=== PATIENT | female | born 1965 | race Caucasian/White ===

== ENCOUNTER → 2017-05-20 | Outpatient (CLI) | payer BC ==
--- NOTE | 2017-05-20 13:52 | MM ---
Reason for exam: follow-up at short interval from prior study. Last mammogram was performed 6 months ago. History: Patient has history of other cancer at age 42. Family history of premenopausal breast cancer in paternal grandmother, premenopausal breast cancer in paternal cousin, and breast cancer in paternal cousin. Took hormonal contraceptives for 3 years beginning at age 16. Physical Findings: Nurse did not find any significant physical abnormalities on exam. MG 3D Diag Mammo W/Cad RT CC and MLO view(s) were taken of the right breast. Prior study comparison: November 10, 2016, bilateral MG diagnostic mammo w CAD [facility]. June 23, 2015, bilateral MG screening mammo w CAD. The breast tissue is heterogeneously dense. This may lower the sensitivity of mammography. There is no discrete abnormality, including area of concern. These results were verbally communicated with the patient and result sheet given to the patient on 05/20/17. ASSESSMENT: Benign, BI-RAD 2 RECOMMENDATION: Routine screening mammogram of both breasts in 5 months. Back on schedule October 2017.
== END | disposition home or self-care (01) ==
LOC: RADMAMWWP 12:54
PROVIDERS: ATTEND Internal Medicine
DX: R92.8 Other abnormal and inconclusive findings on diagnostic imaging of breast (principal)
CPT/HCPCS: G0206; G0279

== ENCOUNTER → 2017-12-09 | Outpatient (CLI) | payer BC ==
--- NOTE | 2017-12-13 10:12 | MM ---
Reason for exam: screening (asymptomatic). Last mammogram was performed 7 months ago. History: Patient has history of other cancer at age 42. Family history of premenopausal breast cancer in paternal grandmother, premenopausal breast cancer in paternal cousin, and breast cancer in paternal cousin. Took hormonal contraceptives for 3 years beginning at age 16. Physical Findings: A clinical breast exam by your physician is recommended on an annual basis and results should be correlated with mammographic findings. MG 3D Screening Mammo W/Cad Bilateral CC and MLO view(s) were taken. Prior study comparison: May 20, 2017, right breast MG 3d diag mammo w/cad RT. November 10, 2016, bilateral MG diagnostic mammo w CAD [facility]. The breast tissue is heterogeneously dense. This may lower the sensitivity of mammography. No significant changes when compared with prior studies. ASSESSMENT: Benign, BI-RAD 2 RECOMMENDATION: Routine screening mammogram of both breasts in 1 year.
== END | disposition home or self-care (01) ==
LOC: RADMAMWWP 13:06
PROVIDERS: ATTEND Internal Medicine
DX: Z12.31 Encounter for screening mammogram for malignant neoplasm of breast (principal)
CPT/HCPCS: 77063; 77067

== ENCOUNTER → 2019-11-06 | Outpatient (CLI) | payer BC ==
--- NOTE | 2019-11-09 10:35 | MM ---
Reason for exam: screening (asymptomatic). Last mammogram was performed 1 year and 11 months ago. History: Patient has history of other cancer at age 42. Family history of premenopausal breast cancer in paternal grandmother, premenopausal breast cancer in paternal cousin, and breast cancer in paternal cousin. Took hormonal contraceptives for 3 years beginning at age 16. Physical Findings: A clinical breast exam by your physician is recommended on an annual basis and results should be correlated with mammographic findings. MG 3D Screening Mammo W/Cad Bilateral CC and MLO view(s) were taken. Prior study comparison: December 09, 2017, bilateral MG 3d screening mammo w/cad. May 20, 2017, right breast MG 3d diag mammo w/cad RT. The breast tissue is heterogeneously dense. This may lower the sensitivity of mammography. Scattered benign oil cyst calcifications. No significant changes when compared with prior studies. ASSESSMENT: Benign, BI-RAD 2 RECOMMENDATION: Routine screening mammogram of both breasts in 1 year.
== END | disposition home or self-care (01) ==
LOC: RADMAMWWP 10:46
PROVIDERS: ATTEND Family Medicine
DX: Z12.31 Encounter for screening mammogram for malignant neoplasm of breast (principal); Z80.3 Family history of malignant neoplasm of breast
CPT/HCPCS: 77063; 77067

== ENCOUNTER → 2020-12-15 | Outpatient (CLI) | payer BC ==
--- NOTE | 2020-12-16 13:55 | MM ---
Reason for exam: screening (asymptomatic). Last mammogram was performed 1 year and 1 month ago. History: Patient has history of other cancer at age 42. Family history of premenopausal breast cancer in paternal grandmother, premenopausal breast cancer in paternal cousin, and breast cancer in paternal cousin. Took hormonal contraceptives for 3 years beginning at age 16. Physical Findings: A clinical breast exam by your physician is recommended on an annual basis and results should be correlated with mammographic findings. MG 3D Screening Mammo W/Cad Bilateral CC and MLO view(s) were taken. Prior study comparison: November 06, 2019, bilateral MG 3d screening mammo w/cad. December 09, 2017, bilateral MG 3d screening mammo w/cad. The breast tissue is heterogeneously dense. This may lower the sensitivity of mammography. No significant changes when compared with prior studies. ASSESSMENT: Benign, BI-RAD 2 RECOMMENDATION: Routine screening mammogram of both breasts in 1 year.
== END | disposition home or self-care (01) ==
LOC: RADMAMWWP 13:02
PROVIDERS: ATTEND Family Medicine
DX: Z12.31 Encounter for screening mammogram for malignant neoplasm of breast (principal)
CPT/HCPCS: 77063; 77067

== ENCOUNTER → 2022-01-06 | Outpatient (CLI) | payer BC | END | disposition home or self-care (01) | LOC: LABPAT 14:48 | PROVIDERS: ATTEND Orthopaedic Surgery | DX: Z01.812 Encounter for preprocedural laboratory examination (principal); Z22.322 Carrier or suspected carrier of Methicillin resistant Staphylococcus aureus; M17.11 Unilateral primary osteoarthritis, right knee | CPT/HCPCS: 87070 ==

== ENCOUNTER → 2022-11-20 | Outpatient (CLI) | payer BC | END | disposition home or self-care (01) | LOC: LABPAT 11:40 | PROVIDERS: ATTEND Orthopaedic Surgery | DX: Z53.9 Procedure and treatment not carried out, unspecified reason (principal) ==

== ENCOUNTER 2023-07-11 08:09 | Day surgery (SDC) | payer BC ==
[2023-07-11] MEDS ORDERED: LACTATED RINGERS 1,000 ML IV SCH (08:24)
[2023-07-11] MEDS ORDERED: PROPOFOL 10 MG/ML 20 ML VIAL IV ONE (09:45)
--- NOTE | 2023-07-11 09:47 | P.HPOR ---
History of Present Illness H&P Date: 07/11/23 Chief Complaint: Right knee adhesions 49-year-old patient seen with persistent right knee adhesions after previously having undergone right total knee arthroplasty. We discussed treatment options. She elected to proceed with manipulation under anesthesia right knee. Past Medical History Past Medical History: Cancer, Osteoarthritis (OA) Additional Past Medical History / Comment(s): pt takes metroprolol for higher heart rate has taken for 7 yrs, hx skin cancer. arthritis to knees. History of Any Multi-Drug Resistant Organisms: None Reported Past Surgical History: Joint Replacement Additional Past Surgical History / Comment(s): rt arthroscopic knee. rt ankle surgery . rt knee ligament, skin cancer removal, lasik rt knee replacement Past Anesthesia/Blood Transfusion Reactions: No Reported Reaction Smoking Status: Never smoker - Past Family History Father Additional Family Medical History / Comment(s): liver issues , skin cancer Mother Family Medical History: AFIB Brother(s) Family Medical History: Diabetes Mellitus, Hypertension Medications and Allergies Home Medications Medication Instructions Recorded Confirmed Type Acetaminophen Tab [Tylenol] 325 mg PO DIRECTED PRN 11/24/22 07/11/23 History Ascorbic Acid [Vitamin C] 500 mg PO DAILY 11/24/22 07/11/23 History Metoprolol Tartrate 25 mg PO DAILY 11/24/22 07/11/23 History Zinc Gluconate [Zinc] 50 mg PO DAILY 11/24/22 07/11/23 History Multivitamins, Thera [Multivitamin 1 tab PO DAILY 12/28/22 07/11/23 History (formulary)] Allergies Allergy/AdvReac Type Severity Reaction Status Date / Time No Known Allergies Allergy Verified 07/11/23 08:24 Physical Examination Osteopathic Statement: *. No significant issues noted on an osteopathic structural exam other than those noted in the History and Physical/Consult. Right knee anterior incision is well-healed. Range of motion is -2-95. Ligaments stable. Hip rotation without pain. Distal neurovascular exam is intact. Results - Diagnostic results Knee x-ray: image reviewed (Stable right total knee arthroplasty) Assessment and Plan Assessment: Right knee adhesions History right total knee arthroplasty Plan: Manipulation under anesthesia right knee Time with Patient: Less than 30
--- NOTE | 2023-07-11 09:54 | P.OP ---
Date of Procedure: 07/11/23 Preoperative Diagnosis: Right knee adhesions Postoperative Diagnosis: Right knee adhesions Procedure(s) Performed: Manipulation under anesthesia right knee Anesthesia: MAC Surgeon: Etienne Smiley Estimated Blood Loss (ml): 0 Pathology: none sent Condition: stable Disposition: PACU Indications for Procedure: 49-year-old patient seen with persistent right knee adhesions after previously having undergone total knee arthroplasty. After having treatment options discussed, she elected to proceed with mini position under anesthesia right knee. Operative Findings: See description of procedure Description of Procedure: Patient was taken to monitored anesthesia area. Patient received IV sedation by the department of anesthesia. Once adequate anesthesia was noted I performed a manipulation of the right knee achieving full extension and 145 of flexion with audible tearing of the adhesions. The patient was then awakened having tolerated procedure well.
[2023-07-11 10:07] VITALS: TEMP 97
[2023-07-11] MEDS ORDERED: HYDROmorphone 0.5 MG/0.5 ML SYRINGE IVP ONE ×2 (10:11→10:26)
[2023-07-11 10:42] VITALS: RESP 16
[2023-07-11 11:21] VITALS: BP 134/68; PULSE 65
--- NOTE | 2023-07-13 15:28 | HP ---
HISTORY AND PHYSICAL Surgery is scheduled for 07/11/2023. HISTORY OF PRESENT ILLNESS: Nina Baugh is a 57-year-old patient seen with right knee adhesions after previous total knee arthroplasty. Options for treatment were discussed. She elected to proceed with manipulation under anesthesia, right knee. Consents obtained. PAST MEDICAL HISTORY: Hypertension. SURGICAL HISTORY: Right total knee arthroplasty. DAILY MEDICATIONS: Metoprolol. ALLERGIES: None. SOCIAL HISTORY: She denies tobacco use. PHYSICAL EVALUATION OF RIGHT KNEE: Shows a well healed anterior incision. Range of motion is negative 3/4 to 110 degrees. Ligaments are stable. Hip rotation without pain. Distal neurovascular exam intact. IMAGING: Radiographs of the right knee reveals a stable appearing total knee arthroplasty. IMPRESSION: 1. Right knee adhesions/stiffness. 2. History of right total knee arthroplasty. PLAN: Manipulation under anesthesia, right knee. MMODL / IJN: [id number] /
== END 2023-07-11 11:26 | disposition home or self-care (01) ==
LOC: OR 08:09
PROVIDERS: ATTEND Orthopaedic Surgery
DX: K66.0 Peritoneal adhesions (postprocedural) (postinfection) (principal); M19.90 Unspecified osteoarthritis, unspecified site; Z80.0 Family history of malignant neoplasm of digestive organs; Z96.651 Presence of right artificial knee joint; Z82.49 Family history of ischemic heart disease and other diseases of the circulatory system; Z83.3 Family history of diabetes mellitus; Z79.899 Other long term (current) drug therapy
CPT/HCPCS: 27570; J2704; J1170

== ENCOUNTER 2023-10-04 12:02 | Day surgery (SDC) | payer BC ==
[2023-09-29 09:35] VITALS: BMI 26.0
[~2023-10-04 12:02] MED LIST: ACETAMINOPHEN TAB 500 MG TAB PO PRN; DEXAMETHASONE SOD PHOSPHATE 4 MG/ML 1 ML VIAL IV ONE; HEPARIN SODIUM,PORCINE/PF 5,000 UNIT/0.5 ML SYRINGE SQ PRN; LACTATED RINGERS 1,000 ML IV SCH; ONDANSETRON 4 MG/2 ML VIAL IVP ONE; Pre Op ABX Message 1 EACH MISC MISCELLANE ONE
[2023-10-04] MEDS ORDERED: MIDAZOLAM 2 MG/2 ML VIAL IVP ONE (13:07)
--- NOTE | 2023-10-04 13:35 | P.GSHP ---
History of Present Illness H&P Date: 10/04/23 Chief Complaint: Right axillary lymphadenopathy 57-year-old female here today for excisional biopsy right axillary lymph node. Patient felt a lump there a few months ago. Increasing in size. Mild soreness. Please refer to recent history and physical. Past Medical History Past Medical History: Cancer, Osteoarthritis (OA) Additional Past Medical History / Comment(s): tachycardia, hx skin cancer History of Any Multi-Drug Resistant Organisms: None Reported Past Surgical History: Joint Replacement, Orthopedic Surgery Additional Past Surgical History / Comment(s): mult. rt knee surg., rt ankle surgery, skin cancer removal, lasik, rt knee replacement Past Anesthesia/Blood Transfusion Reactions: No Reported Reaction Past Psychological History: No Psychological Hx Reported Smoking Status: Never smoker Past Alcohol Use History: Occasional Past Drug Use History: None Reported - Past Family History Father Additional Family Medical History / Comment(s): liver issues , skin cancer Mother Family Medical History: AFIB Brother(s) Family Medical History: Diabetes Mellitus, Hypertension Medications and Allergies Home Medications Medication Instructions Recorded Confirmed Type Metoprolol Tartrate 25 mg PO DAILY 11/24/22 10/04/23 History Allergies Allergy/AdvReac Type Severity Reaction Status Date / Time No Known Allergies Allergy Verified 10/04/23 12:49 Surgical - Exam Physical exam: General: Well-developed, well-nourished HEENT: Normocephalic, sclerae nonicteric Abdomen: Nontender, nondistended Extremities: No edema, 2 x 1.5 cm mass lateral aspect of the axilla Neuro: Alert and oriented Assessment and Plan (1) Axillary mass Narrative/Plan: 57-year-old female with palpable mass right axilla. We'll proceed with excisional biopsy at this time. Risks of bleeding, infection, scarring, numbness, nerve injury, weakness, lymphedema, seroma, possible need for further surgeries reviewed. She understands and wishes to proceed. Current Visit: Yes Status: Acute Code(s): R22.30 - LOCALIZED SWELLING, MASS AND LUMP, UNSPECIFIED UPPER LIMB SNOMED Code(s): 983472047
[2023-10-04] MEDS ORDERED: fentaNYL (PF) 50 MCG/ML 2 ML AMP ONE (13:50)
[2023-10-04] MEDS ORDERED: PHENYLEPHRINE-0.9% NACL SYG 1,000 MCG/10 ML SYRINGE ONE (13:50)
[2023-10-04] MEDS ORDERED: LIDOCAINE 1% INJ 10MG/ML (20 ML MDV) ONE (13:50)
[2023-10-04] MEDS ORDERED: PROPOFOL 10 MG/ML 20 ML VIAL IV ONE (13:50)
[2023-10-04] MEDS ORDERED: MIDAZOLAM 2 MG/2 ML VIAL ONE (13:50)
[2023-10-04] MEDS ORDERED: SODIUM CHLORIDE 0.9% 50 ML with ceFAZolin 2,000 MG IV ONE ×2 (14:21)
[2023-10-04] MEDS ORDERED: SODIUM CHLORIDE 0.9% 100 ML BAG ONE (14:21)
[2023-10-04] MEDS ORDERED: ceFAZolin 1,000 MG VIAL ONE (14:21)
[2023-10-04] MEDS ORDERED: BUPIVACAINE (PF) 0.25% 30 ML VIAL SQ ONE ×2 (14:22)
[2023-10-04] MEDS ORDERED: LACTATED RINGERS 1,000 ML IV ONE (14:49)
[2023-10-04] MEDS ORDERED: ACETAMINOPHEN TAB 325 MG TAB PO PRN (15:12)
[2023-10-04] MEDS ORDERED: NALOXONE 0.4 MG/ML 1 ML VIAL IV PRN (15:12)
[2023-10-04] MEDS: HYDROmorphone 0.5 MG/0.5 ML SYRINGE IVP PRN ×2 (15:18→15:39)
--- NOTE | 2023-10-04 15:18 | P.OP ---
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 COMPLICATIONS: None OPERATIVE PROCEDURE: Patient placed on the operating table in the supine position. The patient was placed under general anesthesia. The right axilla was prepped and draped sterilely. A curvilinear incision was made in a skin fold of the right axilla. The subcutaneous tissues were divided using electrocautery. A small superficial vessel was divided using clips. The patient's palpable mass was dissected down to the level of the basilic vein. Just superior to the basilic vein there was a peripheral nerve likely representing either median or ulnar nerve. Just posterior to that was firm mass measuring approximately 1.5 cm. This was nonpulsatile. 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 Given the location and the concern regarding possible iatrogenic injury if further dissection occurred I decided to abort plans for biopsy or excision at this time. The subcutaneous tissues were closed using 3-0 Vicryl sutures. The skin was closed using a running 4-0 Monocryl subcuticular suture. Skin glue was then applied. DISPOSITION: Stable to recovery room. Discussed case with the patient's mother and also the patient herself and recovery. Patient will follow up in the office 1 week. We'll likely refer to neurosurgery at [facility] for further workup given the intraoperative findings.
[2023-10-04 15:41] VITALS: RESP 16; TEMP 97
[2023-10-04 16:36] VITALS: BP 148/91; PULSE 70
== END 2023-10-04 16:50 | disposition home or self-care (01) ==
LOC: OR 12:02
PROVIDERS: ATTEND Surgery
DX: Z53.8 Procedure and treatment not carried out for other reasons (principal); R59.1 Generalized enlarged lymph nodes; M19.90 Unspecified osteoarthritis, unspecified site; F10.90 Alcohol use, unspecified, uncomplicated; Z80.0 Family history of malignant neoplasm of digestive organs; Z82.49 Family history of ischemic heart disease and other diseases of the circulatory system; Z83.3 Family history of diabetes mellitus; Z98.890 Other specified postprocedural states; Z96.651 Presence of right artificial knee joint; Z79.899 Other long term (current) drug therapy
CPT/HCPCS: 38500; J2250; J1100; J2405; J0690; J2001; J3010; J2704; J1170; J1644; J2371; J0665

== ENCOUNTER → 2023-12-30 | Outpatient (CLI) | payer BC ==
--- NOTE | 2024-01-02 19:41 | MM ---
Reason for Exam: Screening (asymptomatic). Last screening mammogram was performed 12 month(s) ago. Patient History: Menarche at age 12. First Full-Term at age 21. Postmenopausal. Patient has history of breast feeding. Hormonal Contraceptives, starting at age 16 for 3 years. Paternal grandmother had breast cancer at or over age 50. Paternal cousin (keyona) had breast cancer, age 50. Paternal cousin (jr) had breast cancer at or over age 50. Risk Values: Myranda 5 year model risk: 1.2%. NCI Lifetime model risk: 6.7%. Prior Study Comparison: 05/20/2017 Right Diagnostic Mammogram, [facility]. 12/09/2017 Bilateral Screening Mammogram, [facility]. 11/06/2019 Bilateral Screening Mammogram, [facility]. 12/15/2020 Bilateral Screening Mammogram, [facility]. 12/28/2021 Bilateral Screening Mammogram, [facility]. 12/29/2022 Bilateral MG 3D screening mammo w/cad, [facility]. Tissue Density: The breast tissue is heterogeneously dense. This may lower the sensitivity of mammography. Findings: Analyzed By CAD. Benign bilateral oil cyst calcifications. On the right MLO view, superiorly, there is an asymmetric density that has become more defined. Further evaluation is recommended. Otherwise, no significant change. Overall Assessment: Incomplete: need additional imaging evaluation, BI-RAD 0 Management: Special View Mammogram of the right breast. Diagnostic Breast Ultrasound of the right breast. Additional views to include spot 3-D MLO and 3-D lateral views. Subsequent right breast ultrasound if any persisting abnormality. [facility] will attempt to contact patient to return for supplemental views and ultrasound if indicated. Electronically signed and approved by: Mandi Monroe M.D. Radiologist
== END | disposition home or self-care (01) ==
LOC: RADMAMWWP 12:28
PROVIDERS: ATTEND Family Medicine
DX: Z12.31 Encounter for screening mammogram for malignant neoplasm of breast (principal); Z78.0 Asymptomatic menopausal state; Z80.3 Family history of malignant neoplasm of breast
CPT/HCPCS: 77063; 77067

== ENCOUNTER → 2024-01-09 | Outpatient (CLI) | payer BC ==
--- NOTE | 2024-01-09 13:59 | MM ---
Reason for Exam: Additional evaluation requested from abnormal screening. Last screening mammogram was performed less than 1 month ago. Patient History: Menarche at age 12. First Full-Term at age 21. Postmenopausal. Patient has history of breast feeding. Hormonal Contraceptives, starting at age 16 for 3 years. Paternal grandmother had breast cancer at or over age 50. Paternal cousin (keyona) had breast cancer, age 50. Paternal cousin (jr) had breast cancer at or over age 50. Risk Values: Myranda 5 year model risk: 1.2%. NCI Lifetime model risk: 6.7%. Prior Study Comparison: 01/21/2014 Bilateral Screening Mammogram, [facility]. 06/23/2015 Bilateral Screening Mammogram, [facility]. 11/10/2016 Bilateral Diagnostic Mammogram, [facility]. 05/20/2017 Right Diagnostic Mammogram, [facility]. 12/09/2017 Bilateral Screening Mammogram, [facility]. 11/06/2019 Bilateral Screening Mammogram, [facility]. 12/15/2020 Bilateral Screening Mammogram, [facility]. 12/28/2021 Bilateral Screening Mammogram, [facility]. 12/29/2022 Bilateral MG 3D screening mammo w/cad, [facility]. 12/30/2023 Bilateral MG 3D screening mammo w/cad, [facility]. Tissue Density: Right: The breast tissue is heterogeneously dense. This may lower the sensitivity of mammography. Findings: Analyzed By CAD. Pattern appears stable. Multiple benign-appearing round calcifications are present. There is a focal asymmetry in the upper right breast on the mediolateral oblique view. This area is less distinct under compression. On the medial lateral images there is a small 0.3 cm rounded density upper inner aspect right breast 6 cm from the nipple. Ultrasound is recommended. This is at the focal asymmetry level. Overall Assessment: Incomplete: need additional imaging evaluation, BI-RAD 0 Management: Diagnostic Breast Ultrasound of the right breast. A negative mammogram report should not preclude additional follow up of suspicious palpable abnormalities. Patient should continue monthly self breast exam. A clinical breast exam by your physician is recommended on an annual basis and results should be correlated with mammographic findings. Electronically signed and approved by: Tiago Bowers D.O. Radiologis
--- NOTE | 2024-01-09 14:37 | USB ---
Reason for Exam: Additional evaluation requested from abnormal screening. Patient History: Menarche at age 12. First Full-Term at age 21. Postmenopausal. Patient has history of breast feeding. Hormonal Contraceptives, starting at age 16 for 3 years. Paternal grandmother had breast cancer at or over age 50. Paternal cousin (keyona) had breast cancer, age 50. Paternal cousin (jr) had breast cancer at or over age 50. Risk Values: Myranda 5 year model risk: 1.2%. NCI Lifetime model risk: 6.7%. Technique: Method: Targeted. Prior Study Comparison: 12/28/2021 Bilateral Screening Mammogram, [facility]. 12/29/2022 Bilateral MG 3D screening mammo w/cad, [facility]. 12/30/2023 Bilateral MG 3D screening mammo w/cad, [facility]. Findings: The upper inner quadrant of the right breast, the axilla of the right breast and the retroareolar of the right breast were scanned. 1. At the 2:00 position 3 cm from the nipple is a small cyst too small to classify measuring 0.3 x 0.4 x 0.3 cm. Short-term follow-up is recommended. 2. 6 cm from the nipple correlate with the sonographic findings, no discrete ultrasound abnormality evident. Overall Assessment: Probably benign, BI-RAD 3 Management: Screening Mammogram of the right breast in 6 months. Diagnostic Breast Ultrasound of the right breast in 6 months. A clinical breast exam by your physician is recommended on an annual basis and results should be correlated with mammographic findings. This exam should not preclude additional follow-up of suspicious palpable abnormalities. Results were given to the patient verbally at the time of exam. Electronically signed and approved by: Tiago Bowers D.O. Radiologis
== END | disposition home or self-care (01) ==
LOC: RADMAMWWP 13:23
PROVIDERS: ATTEND Family Medicine
DX: N60.01 Solitary cyst of right breast (principal); R92.331 Mammographic heterogeneous density, right breast; Z80.3 Family history of malignant neoplasm of breast; Z78.0 Asymptomatic menopausal state
CPT/HCPCS: 77061; 77065

== ENCOUNTER → 2024-10-25 | Outpatient (CLI) | payer BC ==
--- NOTE | 2024-10-25 13:19 | MM ---
Reason for Exam: Follow-up at short interval from prior study. Last screening mammogram was performed 10 month(s) ago. Patient History: Menarche at age 12. First Full-Term at age 21. Postmenopausal. Patient has history of breast feeding. Hormonal Contraceptives, starting at age 16 for 3 years. Paternal grandmother had breast cancer at or over age 50. Paternal cousin (keyona) had breast cancer, age 50. Paternal cousin (jr) had breast cancer at or over age 50. Risk Values: Myranda 5 year model risk: 1.2%. NCI Lifetime model risk: 6.7%. Prior Study Comparison: 12/29/2022 Bilateral MG 3D screening mammo w/cad, [facility]. 12/30/2023 Bilateral MG 3D screening mammo w/cad, [facility]. 01/09/2024 Right MG 3D work up w/cad RT, [facility]. Tissue Density: Right: The breasts are heterogeneously dense, which may obscure small masses. Findings: Analyzed By CAD. The pattern appears stable. Multiple spherical and round calcifications are within the right breast No suspicious groups of microcalcifications, spiculated or lobular masses, architectural distortion or other secondary signs of malignancy are mammographically apparent. Overall Assessment: Incomplete: need additional imaging evaluation, BI-RAD 0 Management: Diagnostic Breast Ultrasound of the right breast. A negative mammogram report should not preclude additional follow up of suspicious palpable abnormalities. Patient should continue monthly self breast exam. A clinical breast exam by your physician is recommended on an annual basis and results should be correlated with mammographic findings. Note on Myranda scores and lifetime risk: 1. A Myranda score greater than 3% is considered moderate risk. If this is the case, consider specialist referral to assess eligibility for a risk reducing agent. 2. If overall lifetime risk for the development of breast cancer is 20% or higher, the patient may qualify for future screening with alternating mammogram and breast MRI. [facility], , 10/25/2024 1:16 PM. Electronically signed and approved by: Tiago Bowers D.O. Radiologis
--- NOTE | 2024-10-25 14:44 | USB ---
Reason for Exam: Follow-up at short interval from prior study. Patient History: Menarche at age 12. First Full-Term at age 21. Postmenopausal. Patient has history of breast feeding. Hormonal Contraceptives, starting at age 16 for 3 years. Paternal grandmother had breast cancer at or over age 50. Paternal cousin (keyona) had breast cancer, age 50. Paternal cousin (jr) had breast cancer at or over age 50. Risk Values: Myranda 5 year model risk: 1.2%. NCI Lifetime model risk: 6.7%. Technique: Method: Targeted. Prior Study Comparison: 12/29/2022 Bilateral MG 3D screening mammo w/cad, [facility]. 12/30/2023 Bilateral MG 3D screening mammo w/cad, [facility]. 01/09/2024 Right MG 3D work up w/cad RT, [facility]. Findings: The upper inner quadrant of the right breast, the axilla of the right breast and the retroareolar of the right breast were scanned. There is a solid lesion between 2 large vascular structures in the right axillary region. This measures 1.9 x 1.7 x 2.1 cm. By history from the patient this has been identified previously at an outside institution. The films and reports growth are not available for comparison this time. Comparison would be useful to evaluate for interval growth. Overall Assessment: Incomplete: Need prior studies Management: Obtain Prior Study for Comparison of the right breast. A clinical breast exam by your physician is recommended on an annual basis and results should be correlated with mammographic findings. This exam should not preclude additional follow-up of suspicious palpable abnormalities. Results were given to the patient verbally at the time of exam. [facility], , 10/25/2024 2:42 PM. Electronically signed and approved by: Tiago Bowers D.O. Radiologis
== END | disposition home or self-care (01) ==
LOC: RADMAMWWP 12:55
PROVIDERS: ATTEND Family Medicine
DX: R92.8 Other abnormal and inconclusive findings on diagnostic imaging of breast (principal); Z78.0 Asymptomatic menopausal state; Z80.3 Family history of malignant neoplasm of breast; R92.331 Mammographic heterogeneous density, right breast
CPT/HCPCS: 77061; 77065